=== PATIENT | female | born 1945 | race Caucasian/White ===

== ENCOUNTER 2017-12-10 00:39 | Emergency (ER) | payer OTHER ==
[~2017-12-10] VITALS: Ht 162.6 cm; Wt 77.1 kg
[~2017-12-10 00:39] MED LIST: ALPR1TAB2 PO
[2017-12-10 00:45] VITALS: BP_SYST 189
[2017-12-10] MEDS ORDERED: ACETAMINOPHEN 500 MG TABLET PO ONE (01:30)
[2017-12-10 01:57] VITALS: BP_SYST 147
== END 2017-12-10 01:57 | disposition home or self-care (01) ==
LOC: SED 00:39
DX: M25.552 Pain in left hip (principal); Z88.2 Allergy status to sulfonamides
CPT/HCPCS: 73502; 99284

== ENCOUNTER 2023-12-03 10:17 | Emergency (ER) | payer OTHER ==
[~2023-12-03] VITALS: Ht 160 cm; Wt 70.3 kg
[2023-12-03 10:17] VITALS: BP_SYST 152; PULSE 96; RESP 18; TEMP 97.4; O2SAT 96
[~2023-12-03 10:17] MED LIST changes: +ACET-1172 PO; +AMIT25TA10 PO; +IBUP-1970 PO; +METH500T PO; +NAPR-688 PO; +TRAM50TA92 PO; +VIS50 PO
[2023-12-03 11:34] LABS: BILIRUBIN,URINE NEGATIVE (NEGATIVE); BLOOD, URINE 2+ (NEGATIVE); CLARITY/URINE SL CLOUDY (CLEAR); COLOR,URINE YELLOW (YELLOW); GLUCOSE,URINE 3+ (NEGATIVE); KETONES,URINE 2+ (NEGATIVE); LEUKOCYTE ESTERASE ,URINE TRACE (NEGATIVE); NITRITE, URINE POSITIVE (NEGATIVE); PROTEIN URINE 3+ (NEGATIVE)
[2023-12-03 11:39] LABS: HEMATOCRIT 37.3 % (36-48); HEMOGLOBIN 12.5 g/dL (12.0-16.0); MEAN CORPUSCULAR HEMOGLOBIN 28 pg (27-31); MEAN CORPUSCULAR HGB CONC 34 % (32-36); MEAN CORPUSCULAR VOLUME 83 fL (79.0-98.0); PLATELET COUNT (AUTO) 363 K/uL (130-430); RED BLOOD CELL COUNT(AUTO) 4.49 MIL/uL (4.2-6.2); RED CELL DISTRIBUTION WIDTH 14.2 % (9.0-15.0); WHITE BLOOD COUNT (AUTO) 27.6 K/uL (4.8-10.8)
[2023-12-03 11:46] LABS: ALANINE AMINOTRANSFERASE 25 U/L (12-78); ANION GAP 12 (5-15); ASPARTATE AMINOTRANSFERASE 17 U/L (10-37); BILIRUBIN,DIRECT 0.2 mg/dL (0.0-0.3); CALCIUM 8.7 mg/dL (8.4-11.0); CARBON DIOXIDE 22 mmol/L (23-29); CHLORIDE 91 mmol/L (98-107); CREATININE 1.42 mg/dL (0.55-1.30); GLUCOSE 392 mg/dL (74-106); LIPASE 33 U/L (16-77); POTASSIUM 4.6 mmol/L (3.5-5.1); SODIUM SERUM 125 mmol/L (136-145); TOTAL BILIRUBIN 0.6 mg/dL (0.0-1.0); TOTAL PROTEIN, SERUM 7.8 g/dL (6.4-8.3); UREA NITROGEN, BLOOD 27 mg/dL (8-21)
[2023-12-03 12:28] LABS: BACTERIA,URINE FEW /HPF (None Seen)
[2023-12-03 12:29] LABS: HYALINE CASTS, URINE 0-1 /LPF (None Seen)
[2023-12-03 12:54] LABS: BAND % (MANUAL) 5 % (0-6); BASOPHILS % (MANUAL) 0 % (0-2); EOSINOPHILS % (MANUAL) 0 % (0-7); LYMPHOCYTES % (MANUAL) 4 % (20-46); MONOCYTES % (MANUAL) 6 % (0-11)
[2023-12-03 12:55] LABS: PLATELET ESTIMATE ADEQUATE (ADEQUATE)
[2023-12-03] MEDS ORDERED: cefTRIAXone 1 GM VIAL ONE (13:06)
[2023-12-03] MEDS: cefTRIAXone 1 GM in D5W 50 ML IV ONE (13:19)
[2023-12-03] MEDS: NACL 0.9% 1,000 ML IV ONE (13:19)
[2023-12-03] MEDS ORDERED: CEFU250T85 PO (13:30)
[2023-12-03 14:48] VITALS: BP_SYST 186; PULSE 90; RESP 16; TEMP 99.1; O2SAT 96
== END 2023-12-03 14:47 | disposition left against medical advice (07) ==
LOC: SED 10:17
DX: N39.0 Urinary tract infection, site not specified (principal); N28.89 Other specified disorders of kidney and ureter; D72.829 Elevated white blood cell count, unspecified; R73.9 Hyperglycemia, unspecified; Z88.2 Allergy status to sulfonamides
CPT/HCPCS: 99284; 74176; 96365; 85027; 80076; 80048; 81000; 81001; 83690; 85007; 87040; 36415; 81015; J0696; 87186

== ENCOUNTER 2023-12-16 04:21 | Inpatient (IN) | payer OTHER ==
[~2023-12-16] VITALS: Ht 162.6 cm; Wt 72.1 kg
[~2023-12-16 04:21] MED LIST changes: +CEFU250T85 PO
[2023-12-16 04:25] VITALS: BP_SYST 144; PULSE 93; RESP 16; TEMP 97.4; O2SAT 98
[2023-12-16] MEDS: NITROGLYCERIN 1 INCH (GM) OINT. TP ONE (05:19)
[2023-12-16 05:55] LABS: BASOPHILS # (AUTO) 0.1 K/uL (0.0-0.2); EOSINOPHILS # (AUTO) 0.1 K/uL (0.0-0.4); EOSINOPHILS % (AUTO) 0.9 % (0.0-4.0); HEMATOCRIT 35.7 % (36-48); HEMOGLOBIN 12.1 g/dL (12.0-16.0); LYMPHOCYTES # (AUTO) 1.6 K/uL (1.0-5.5); LYMPHOCYTES % (AUTO) 14.4 % (20.5-51.5); MEAN CORPUSCULAR HEMOGLOBIN 28 pg (27-31); MEAN CORPUSCULAR HGB CONC 34 % (32-36); MEAN CORPUSCULAR VOLUME 83 fL (79.0-98.0); MONOCYTES # (AUTO) 0.9 K/uL (0.0-1.0); MONOCYTES % (AUTO) 7.8 % (1.7-9.3); NEUTROPHILS # (AUTO) 8.2 K/uL (1.8-7.7); NEUTROPHILS % (AUTO) 75.9 % (40.0-70.0); PLATELET COUNT (AUTO) 444 K/uL (130-430); RED BLOOD CELL COUNT(AUTO) 4.32 MIL/uL (4.2-6.2); RED CELL DISTRIBUTION WIDTH 14.4 % (9.0-15.0); WHITE BLOOD COUNT (AUTO) 10.8 K/uL (4.8-10.8)
[2023-12-16] MEDS: hydrALAZINE HCL 20 MG/ML VIAL IVP ONE (05:55)
[2023-12-16] MEDS: MORPHINE 2 MG/ML INJ. SYRINGE IVP ONE (05:56)
[2023-12-16 06:26] LABS: ANION GAP 11 (5-15); CALCIUM 9.6 mg/dL (8.4-11.0); CARBON DIOXIDE 26 mmol/L (23-29); CHLORIDE 95 mmol/L (98-107); CREATININE 1.24 mg/dL (0.55-1.30); GLUCOSE 327 mg/dL (74-106); POTASSIUM 4.7 mmol/L (3.5-5.1); SODIUM SERUM 132 mmol/L (136-145); UREA NITROGEN, BLOOD 23 mg/dL (8-21)
[2023-12-16] MEDS ORDERED: IOHEXOL 350 mgI/mL, 150 ML INFUS..BTL IV ONE (06:43)
[2023-12-16] MEDS ORDERED: CELE-148 PO (07:11)
[2023-12-16] MEDS ORDERED: LEVO150T8 PO (07:11)
[2023-12-16] MEDS: LORazepam 2 MG/ML VIAL IVP ONE (07:27)
[2023-12-16 11:27] VITALS: O2SAT 95
[2023-12-16 11:32] VITALS: BP_SYST 128; PULSE 92; RESP 15; TEMP 98.6
[2023-12-16] MEDS: PANTOPRAZOLE SODIUM 40 MG/VIAL (PROTONIX) IVP ONE (12:34)
[2023-12-16] MEDS: LEVOTHYROXINE SODIUM 0.15 MG TABLET PO ONE (12:34)
[2023-12-16] MEDS: LOSARTAN POTASSIUM 25 MG TABLET PO ONE (12:35)
[2023-12-16 12:58] LABS: ALBUMIN 2.7 g/dL (3.4-4.8); BILIRUBIN,DIRECT 0.1 mg/dL (0.0-0.3); TOTAL BILIRUBIN 0.3 mg/dL (0.0-1.0); TOTAL PROTEIN, SERUM 6.9 g/dL (6.4-8.3)
[2023-12-16 15:02] VITALS: BP_SYST 124; PULSE 86; RESP 15; TEMP 97.6; O2SAT 95
[2023-12-16 20:00] VITALS: BP_SYST 148; PULSE 89; RESP 18; TEMP 97.6; O2SAT 95
[2023-12-16] MEDS: LOSARTAN POTASSIUM 25 MG TABLET PO SCH (20:27)
[2023-12-16] MEDS: PANTOPRAZOLE SODIUM 40 MG/VIAL (PROTONIX) IVP SCH (20:31)
[2023-12-16 22:43] VITALS: BP_SYST 148; PULSE 89; RESP 18; TEMP 97.6; O2SAT 95
[2023-12-17 00:10] VITALS: BP_SYST 142; PULSE 82; RESP 18; TEMP 98.4; O2SAT 94
[2023-12-17] MEDS: SUCRALFATE 1 GM/10 ML UDC PO SCH (03:36)
[2023-12-17 05:48] LABS: BASOPHILS # (AUTO) 0.1 K/uL (0.0-0.2); EOSINOPHILS # (AUTO) 0.1 K/uL (0.0-0.4); HEMATOCRIT 33.8 % (36-48); HEMOGLOBIN 11.4 g/dL (12.0-16.0); LYMPHOCYTES # (AUTO) 1.7 K/uL (1.0-5.5); MEAN CORPUSCULAR HEMOGLOBIN 28 pg (27-31); MEAN CORPUSCULAR HGB CONC 34 % (32-36); MEAN CORPUSCULAR VOLUME 83 fL (79.0-98.0); MONOCYTES # (AUTO) 1.4 K/uL (0.0-1.0); MONOCYTES % (AUTO) 10.5 % (1.7-9.3); NEUTROPHILS # (AUTO) 9.9 K/uL (1.8-7.7); NEUTROPHILS % (AUTO) 74.5 % (40.0-70.0); PLATELET COUNT (AUTO) 413 K/uL (130-430); RED CELL DISTRIBUTION WIDTH 14.7 % (9.0-15.0); WHITE BLOOD COUNT (AUTO) 13.3 K/uL (4.8-10.8)
[2023-12-17 05:56] LABS: ANION GAP 12 (5-15); CALCIUM 9.2 mg/dL (8.4-11.0); CARBON DIOXIDE 25 mmol/L (23-29); CHLORIDE 98 mmol/L (98-107); CREATININE 1.34 mg/dL (0.55-1.30); GLUCOSE 275 mg/dL (74-106); POTASSIUM 4.2 mmol/L (3.5-5.1); SODIUM SERUM 135 mmol/L (136-145); UREA NITROGEN, BLOOD 20 mg/dL (8-21)
[2023-12-17] MEDS: LEVOTHYROXINE SODIUM 0.15 MG TABLET PO SCH (06:04)
[2023-12-17] MEDS: cloNIDine HCL 0.1 MG TABLET PO PRN (06:12)
[2023-12-17] MEDS: MORPHINE 2 MG/ML INJ. SYRINGE ONE (07:43)
[2023-12-17] MEDS: MORPHINE 2 MG/ML INJ. SYRINGE IVP ONE (07:43)
[2023-12-17] MEDS ORDERED: NALOXONE HCL 0.4 MG/ML AMP (NARCAN) IVP PRN (07:45)
[2023-12-17 08:00] VITALS: O2SAT 96
[2023-12-17 08:23] VITALS: BP_SYST 127; PULSE 92; RESP 16; TEMP 98.2; O2SAT 96
[2023-12-17] MEDS: hydrALAZINE HCL 20 MG/ML VIAL IVP ONE (08:55)
[2023-12-17] MEDS: cloNIDine HCL 0.1 MG/24 HR PATCH.TDWK TD ONE (09:08)
[2023-12-17 12:28] VITALS: BP_SYST 139; PULSE 85; RESP 17; TEMP 98.3; O2SAT 98
[2023-12-17] MEDS: NIFEdipine 30 MG TAB.ER.24 PO SCH (12:34)
[2023-12-17] MEDS: metroNIDAZOLE 500 mg/NS 100 ML IV SCH (14:23)
[2023-12-17 16:44] VITALS: BP_SYST 129; PULSE 89; RESP 16; TEMP 98.1; O2SAT 97
[2023-12-17] MEDS: traMADol HCL HCL 50 MG TABLET (ULTRAM) PO PRN (17:20)
[2023-12-17 20:00] VITALS: BP_SYST 146; PULSE 86; RESP 18; TEMP 98.3; O2SAT 97
[2023-12-17] MEDS: hydrALAZINE HCL 25 MG TABLET PO PRN (20:11)
[2023-12-18] VITALS (7 sets, daily range): BP systolic 115–134; PULSE 73–91; RESP 15–18; TEMP 97.4–98.7; O2SAT 94–97
[2023-12-18] MEDS: MIDAZOLAM HCL 5 MG/5 ML VIAL ONE (06:13)
[2023-12-18] MEDS: fentaNYL CITRATE/PF 100 MCG/2 ML AMP ONE (06:22)
[2023-12-18] MEDS: MEPERIDINE 100 MG INJ. 100 MG/ML VIAL ONE (06:23)
[2023-12-18 06:30] LABS: BASOPHILS # (AUTO) 0.1 K/uL (0.0-0.2); BASOPHILS % (AUTO) 0.5 % (0.0-2.0); EOSINOPHILS % (AUTO) 0.1 % (0.0-4.0); HEMATOCRIT 32.7 % (36-48); HEMOGLOBIN 10.9 g/dL (12.0-16.0); LYMPHOCYTES # (AUTO) 1.8 K/uL (1.0-5.5); LYMPHOCYTES % (AUTO) 9.4 % (20.5-51.5); MEAN CORPUSCULAR HEMOGLOBIN 27 pg (27-31); MEAN CORPUSCULAR HGB CONC 33 % (32-36); MEAN CORPUSCULAR VOLUME 82 fL (79.0-98.0); MONOCYTES # (AUTO) 2.1 K/uL (0.0-1.0); NEUTROPHILS # (AUTO) 15.1 K/uL (1.8-7.7); PLATELET COUNT (AUTO) 380 K/uL (130-430); RED BLOOD CELL COUNT(AUTO) 3.97 MIL/uL (4.2-6.2); RED CELL DISTRIBUTION WIDTH 14.7 % (9.0-15.0); WHITE BLOOD COUNT (AUTO) 19.1 K/uL (4.8-10.8)
[2023-12-18 06:53] LABS: ANION GAP 10 (5-15); CALCIUM 8.7 mg/dL (8.4-11.0); CARBON DIOXIDE 24 mmol/L (23-29); CHLORIDE 92 mmol/L (98-107); CREATININE 1.35 mg/dL (0.55-1.30); GLUCOSE 327 mg/dL (74-106); POTASSIUM 4.5 mmol/L (3.5-5.1); SODIUM SERUM 126 mmol/L (136-145); UREA NITROGEN, BLOOD 19 mg/dL (8-21)
[2023-12-18] MEDS: SIMETHICONE 40 MG/0.6 ML ML ONE (07:19)
[2023-12-18] MEDS ORDERED: METOPROLOL SUCCINATE 25 MG TAB.SR.24H (TOPROL XL) PO SCH (09:00)
[2023-12-18] MEDS: NIFEdipine 30 MG TAB.ER.24 PO SCH (09:28)
[2023-12-18] MEDS ORDERED: METF-379 PO (11:50)
[2023-12-18] MEDS ORDERED: PIOG30TA70 PO (11:51)
[2023-12-18 12:17] LABS: BILIRUBIN,URINE NEGATIVE (NEGATIVE); CLARITY/URINE CLOUDY (CLEAR); COLOR,URINE YELLOW (YELLOW); GLUCOSE,URINE 3+ (NEGATIVE); KETONES,URINE TRACE (NEGATIVE); LEUKOCYTE ESTERASE ,URINE 2+ (NEGATIVE); NITRITE, URINE NEGATIVE (NEGATIVE); PROTEIN URINE NEGATIVE (NEGATIVE); UROBILINOGEN,URINE 0.2 (0.2-1.0)
[2023-12-18 12:18] LABS: BLOOD, URINE TRACE (NEGATIVE)
[2023-12-18 12:26] LABS: BACTERIA,URINE MODERATE /HPF (None Seen); OTHER CASTS, URINE WBC CASTS 2+ /LPF (None Seen); WBC,URINE >100 /HPF (0-3)
[2023-12-18 12:27] LABS: MUCUS,URINE 2+ /LPF (None Seen)
[2023-12-18] MEDS: NACL 0.9% 1,000 ML IV SCH (13:14)
[2023-12-18] MEDS: CYCLOBENZAPRINE HCL 10 MG TABLET (FLEXERIL) PO ONE (13:15)
[2023-12-18] MEDS: CYCLOBENZAPRINE HCL 10 MG TABLET (FLEXERIL) PO SCH (15:49)
[2023-12-19 00:20] VITALS: BP_SYST 139; PULSE 85; RESP 18; TEMP 98.9; O2SAT 95
[2023-12-19 06:28] LABS: BASOPHILS # (AUTO) 0.1 K/uL (0.0-0.2); BASOPHILS % (AUTO) 0.5 % (0.0-2.0); EOSINOPHILS # (AUTO) 0.1 K/uL (0.0-0.4); EOSINOPHILS % (AUTO) 0.3 % (0.0-4.0); HEMATOCRIT 32.2 % (36-48); HEMOGLOBIN 10.9 g/dL (12.0-16.0); LYMPHOCYTES # (AUTO) 1.6 K/uL (1.0-5.5); MEAN CORPUSCULAR HEMOGLOBIN 28 pg (27-31); MEAN CORPUSCULAR HGB CONC 34 % (32-36); MEAN CORPUSCULAR VOLUME 83 fL (79.0-98.0); MONOCYTES # (AUTO) 1.9 K/uL (0.0-1.0); MONOCYTES % (AUTO) 10.3 % (1.7-9.3); NEUTROPHILS # (AUTO) 14.4 K/uL (1.8-7.7); NEUTROPHILS % (AUTO) 79.9 % (40.0-70.0); PLATELET COUNT (AUTO) 338 K/uL (130-430); RED BLOOD CELL COUNT(AUTO) 3.87 MIL/uL (4.2-6.2); RED CELL DISTRIBUTION WIDTH 14.4 % (9.0-15.0); WHITE BLOOD COUNT (AUTO) 18.1 K/uL (4.8-10.8)
[2023-12-19 07:07] LABS: ANION GAP 12 (5-15); CALCIUM 8.5 mg/dL (8.4-11.0); CARBON DIOXIDE 23 mmol/L (23-29); CHLORIDE 94 mmol/L (98-107); CREATININE 1.23 mg/dL (0.55-1.30); GLUCOSE 303 mg/dL (74-106); POTASSIUM 3.8 mmol/L (3.5-5.1); SODIUM SERUM 129 mmol/L (136-145); THYROID STIMULATING HORMONE 3.06 uIu/mL (0.34-4.82); UREA NITROGEN, BLOOD 20 mg/dL (8-21)
[2023-12-19 08:00] VITALS: BP_SYST 123; PULSE 84; RESP 20; TEMP 98.3; O2SAT 94
[2023-12-19 11:13] VITALS: BP_SYST 130; PULSE 78; RESP 16; TEMP 97; O2SAT 92
[2023-12-19 15:06] VITALS: BP_SYST 123; PULSE 77; RESP 16; TEMP 98.3; O2SAT 97
[2023-12-19 20:01] VITALS: BP_SYST 134; PULSE 83; RESP 19; TEMP 97.9; O2SAT 95
[2023-12-20 01:00] VITALS: BP_SYST 142; PULSE 91; RESP 17; TEMP 98.4; O2SAT 97
[2023-12-20 07:03] LABS: BASOPHILS # (AUTO) 0.2 K/uL (0.0-0.2); BASOPHILS % (AUTO) 1.2 % (0.0-2.0); EOSINOPHILS # (AUTO) 0.2 K/uL (0.0-0.4); EOSINOPHILS % (AUTO) 1.2 % (0.0-4.0); HEMATOCRIT 29.8 % (36-48); HEMOGLOBIN 10.1 g/dL (12.0-16.0); LYMPHOCYTES # (AUTO) 1.7 K/uL (1.0-5.5); LYMPHOCYTES % (AUTO) 13.1 % (20.5-51.5); MEAN CORPUSCULAR HEMOGLOBIN 28 pg (27-31); MEAN CORPUSCULAR HGB CONC 34 % (32-36); MEAN CORPUSCULAR VOLUME 82 fL (79.0-98.0); MONOCYTES # (AUTO) 1.5 K/uL (0.0-1.0); MONOCYTES % (AUTO) 11.6 % (1.7-9.3); NEUTROPHILS # (AUTO) 9.7 K/uL (1.8-7.7); NEUTROPHILS % (AUTO) 72.9 % (40.0-70.0); PLATELET COUNT (AUTO) 292 K/uL (130-430); RED BLOOD CELL COUNT(AUTO) 3.62 MIL/uL (4.2-6.2); RED CELL DISTRIBUTION WIDTH 14.7 % (9.0-15.0); WHITE BLOOD COUNT (AUTO) 13.3 K/uL (4.8-10.8)
[2023-12-20 07:14] LABS: ERYTHROCYTE SEDIMENTATION RATE 50 MM/HR (0-20)
[2023-12-20 07:20] LABS: ANION GAP 9 (5-15); CALCIUM 7.9 mg/dL (8.4-11.0); CARBON DIOXIDE 25 mmol/L (23-29); CHLORIDE 102 mmol/L (98-107); CREATININE 1.14 mg/dL (0.55-1.30); GLUCOSE 327 mg/dL (74-106); POTASSIUM 4.2 mmol/L (3.5-5.1); SODIUM SERUM 136 mmol/L (136-145); UREA NITROGEN, BLOOD 16 mg/dL (8-21)
[2023-12-20 08:00] VITALS: BP_SYST 140; PULSE 85; RESP 16; TEMP 97.5; O2SAT 96
[2023-12-20 11:02] VITALS: BP_SYST 150; PULSE 86; RESP 15; TEMP 97.3; O2SAT 100
[2023-12-20 15:01] VITALS: BP_SYST 140; PULSE 88; RESP 16; TEMP 97; O2SAT 97
[2023-12-20] MEDS ORDERED: METR-154 PO (16:47)
[2023-12-20] MEDS ORDERED: LEVO-62 PO (16:47)
[2023-12-20 17:54] VITALS: BP_SYST 140; PULSE 86; RESP 16; TEMP 97; O2SAT 97
[2023-12-20] MEDS ORDERED: metroNIDAZOLE 500 MG TABLET PO SCH (21:00)
[2023-12-21 08:06] LABS: CORTISOL (SERUM) 22.7 ug/dL (6.2-19.4)
[2023-12-21] MEDS ORDERED: levoFLOXacin 500 MG TABLET PO SCH (10:00)
[2023-12-21] MEDS ORDERED: LOSA-412 PO (19:29)
[2023-12-21] MEDS ORDERED: NIFE-129 PO (19:29)
== END 2023-12-20 18:06 | disposition home or self-care (01) | DRG 392 ==
LOC: SED 04:21 → STU 06:23 → SMU 12-18 14:38
PROVIDERS: ADMIT Family Medicine; ATTEND Family Medicine
PROC: 0DB68ZX Excision of Stomach, Via Natural or Artificial Opening Endoscopic, Diagnostic (ICD-10-PCS; principal; 2023-12-18 07:30)
DX: K52.9 Noninfective gastroenteritis and colitis, unspecified (principal); E87.1 Hypo-osmolality and hyponatremia; E44.1 Mild protein-calorie malnutrition; R65.10 Systemic inflammatory response syndrome (SIRS) of non-infectious origin without acute organ dysfunction; I16.0 Hypertensive urgency; K29.70 Gastritis, unspecified, without bleeding; D64.9 Anemia, unspecified; E03.9 Hypothyroidism, unspecified; E11.65 Type 2 diabetes mellitus with hyperglycemia; I10 Essential (primary) hypertension; K21.00 Gastro-esophageal reflux disease with esophagitis, without bleeding; R07.89 Other chest pain; Z90.710 Acquired absence of both cervix and uterus; Z79.899 Other long term (current) drug therapy; Z88.2 Allergy status to sulfonamides; Z68.27 Body mass index [BMI] 27.0-27.9, adult
CPT/HCPCS: 36415; 43239; 70450-TC; 71275; 72110; 74175; 80048; 80076; 81000; 81001; 81015; 82533; 82948; 83690; 83930; 84302; 84443; 84484; 84550; 85025; 85651; 87040; 87081; 87086; 88305; 88312; 88313; 93005; 96374; 96375; 97116-GP; 97530-GP; 99285; C9113; G0378; J0360; J1956; J2060; J2175; J2250; J2270; J3010; J3490; Q9967

== ENCOUNTER 2024-02-21 20:23 | Inpatient (IN) | payer OTHER ==
[~2024-02-21] VITALS: Ht 157.5 cm; Wt 86.2 kg
[~2024-02-21 20:23] MED LIST changes: +CELE-148 PO; +LEVO-62 PO; +LEVO150T8 PO; +LOSA-412 PO; +METF-379 PO; +METR-154 PO; +NIFE-129 PO; +PIOG30TA70 PO
[2024-02-21 20:32] VITALS: BP_SYST 131; PULSE 108; RESP 13; TEMP 100.6; O2SAT 96
[2024-02-21 21:17] LABS: ALANINE AMINOTRANSFERASE 65 U/L (12-78); ALBUMIN 2.6 g/dL (3.4-4.8); ANION GAP 11 (5-15); ASPARTATE AMINOTRANSFERASE 37 U/L (10-37); BILIRUBIN,DIRECT 0.2 mg/dL (0.0-0.3); CALCIUM 9.2 mg/dL (8.4-11.0); CARBON DIOXIDE 21 mmol/L (23-29); CHLORIDE 88 mmol/L (98-107); CREATININE 1.57 mg/dL (0.55-1.30); GLUCOSE 389 mg/dL (74-106); POTASSIUM 4.5 mmol/L (3.5-5.1); SODIUM SERUM 120 mmol/L (136-145); TOTAL BILIRUBIN 0.6 mg/dL (0.0-1.0); TOTAL PROTEIN, SERUM 7.6 g/dL (6.4-8.3); UREA NITROGEN, BLOOD 42 mg/dL (8-21)
[2024-02-21] MEDS: NACL 0.9% 1,000 ML IV ONE (21:19)
[2024-02-21 21:20] LABS: HEMATOCRIT 31.6 % (36-48); HEMOGLOBIN 10.8 g/dL (12.0-16.0); MEAN CORPUSCULAR HEMOGLOBIN 27 pg (27-31); MEAN CORPUSCULAR HGB CONC 34 % (32-36); MEAN CORPUSCULAR VOLUME 80 fL (79.0-98.0); PLATELET COUNT (AUTO) 440 K/uL (130-430); RED BLOOD CELL COUNT(AUTO) 3.93 MIL/uL (4.2-6.2); RED CELL DISTRIBUTION WIDTH 16.1 % (9.0-15.0); WHITE BLOOD COUNT (AUTO) 29.6 K/uL (4.8-10.8)
[2024-02-21] MEDS: metroNIDAZOLE 500 mg/NS 100 ML IV ONE (21:45)
[2024-02-21 21:51] LABS: BAND % (MANUAL) 3 % (0-6); BASOPHILS % (MANUAL) 0 % (0-2); EOSINOPHILS % (MANUAL) 0 % (0-7); LYMPHOCYTES % (MANUAL) 1 % (20-46); MONOCYTES % (MANUAL) 10 % (0-11)
[2024-02-21 21:52] LABS: PLATELET ESTIMATE INCREASED (ADEQUATE)
[2024-02-21 22:17] LABS: BILIRUBIN,URINE NEGATIVE (NEGATIVE); BLOOD, URINE 3+ (NEGATIVE); COLOR,URINE YELLOW (YELLOW); GLUCOSE,URINE 2+ (NEGATIVE); KETONES,URINE TRACE (NEGATIVE); LEUKOCYTE ESTERASE ,URINE 2+ (NEGATIVE); NITRITE, URINE NEGATIVE (NEGATIVE); PH,URINE 5.5 (5.0-8.0); PROTEIN URINE 2+ (NEGATIVE); UROBILINOGEN,URINE 0.2 (0.2-1.0)
[2024-02-21 22:18] LABS: CLARITY/URINE HAZY (CLEAR)
[2024-02-21 22:31] LABS: BACTERIA,URINE MANY /HPF (None Seen); WBC,URINE 20-50 /HPF (0-3)
[2024-02-21] MEDS: ONDANSETRON HCL 4 MG/2 ML VIAL IVP ONE (22:34)
[2024-02-21] MEDS: KETOROLAC TROMETHAMINE 30 MG VIAL IVP ONE (22:35)
[2024-02-21] MEDS: MORPHINE 2 MG/ML INJ. SYRINGE IVP ONE (22:37)
[2024-02-21] MEDS: cefTRIAXone 1 GM IVPB PREMIX 50 ML IV ONE (22:45)
[2024-02-22] VITALS (8 sets, daily range): BP systolic 118–161; PULSE 100–109; RESP 16–20; TEMP 97.6–100.2; O2SAT 93–98
[2024-02-22] MEDS ORDERED: LOSA-412 PO (00:10)
[2024-02-22] MEDS ORDERED: GLIP10TA11 PO (00:10)
[2024-02-22] MEDS ORDERED: PANT40TA45 PO (00:10)
[2024-02-22] MEDS ORDERED: METF-381 PO (00:10)
[2024-02-22] MEDS ORDERED: PIOG45TA63 PO (00:10)
[2024-02-22] MEDS ORDERED: INSULIN REGULAR, HUMAN 10 UNITS/0.1 ML, 3 ML VIAL ONE (00:31)
[2024-02-22] MEDS: INSULIN REGULAR, HUMAN 10 UNITS/0.1 ML, 3 ML VIAL IVP ONE (00:36)
[2024-02-22] MEDS: NS 250 ML IV ONE (01:23)
[2024-02-22] MEDS: D5/0.45 NS 1,000 ML IV SCH (05:56)
[2024-02-22] MEDS ORDERED: NALOXONE HCL 0.4 MG/ML AMP (NARCAN) IVP PRN (10:00)
[2024-02-22] MEDS ORDERED: ONDANSETRON HCL 4 MG/2 ML VIAL IVP PRN (10:00)
[2024-02-22] MEDS ORDERED: ALBUTEROL SULFATE 0.083% 2.5 MG/3 ML VIAL.NEB INH PRN (10:00)
[2024-02-22] MEDS ORDERED: HYDROcodone/ACETAMIN 5-325 MG TAB (NORCO/ VICODIN) PO PRN (10:00)
[2024-02-22] MEDS ORDERED: MORPHINE 2 MG/ML INJ. SYRINGE IVP PRN (10:00)
[2024-02-22] MEDS ORDERED: GLUCOSE (DEXTROSE) ORAL GEL -Adults PO PRN (10:15)
[2024-02-22] MEDS ORDERED: DEXTROSE 50% JECT 50 ML DISP.SYRIN IVP PRN (10:15)
[2024-02-22 10:43] LABS: HEMATOCRIT 30.7 % (36-48); HEMOGLOBIN 10.1 g/dL (12.0-16.0); MEAN CORPUSCULAR HEMOGLOBIN 26 pg (27-31); MEAN CORPUSCULAR HGB CONC 33 % (32-36); MEAN CORPUSCULAR VOLUME 81 fL (79.0-98.0); PLATELET COUNT (AUTO) 441 K/uL (130-430); RED BLOOD CELL COUNT(AUTO) 3.81 MIL/uL (4.2-6.2); RED CELL DISTRIBUTION WIDTH 15.9 % (9.0-15.0)
[2024-02-22] MEDS: NACL 0.9% 1,000 ML IV SCH (10:53)
[2024-02-22] MEDS: HYDROcodone/ACETAMIN 10-325 MG TAB PO PRN (10:54)
[2024-02-22] MEDS: LOSARTAN POTASSIUM 25 MG TABLET PO ONE (10:55)
[2024-02-22] MEDS: LEVOTHYROXINE SODIUM 0.15 MG TABLET PO ONE (11:08)
[2024-02-22 11:11] LABS: WHITE BLOOD COUNT (AUTO) 32.2 K/uL (4.8-10.8)
[2024-02-22] MEDS: INSULIN REGULAR, HUMAN 100 UNITS/ML, 3 ML VIAL (humuLIN R) SUBCUT PRN (11:11)
[2024-02-22] MEDS ORDERED: cefTRIAXone 1 GM in D5W 50 ML IV SCH (11:15)
[2024-02-22 12:10] LABS: ALANINE AMINOTRANSFERASE 59 U/L (12-78); ALBUMIN 2.3 g/dL (3.4-4.8); ANION GAP 12 (5-15); ASPARTATE AMINOTRANSFERASE 36 U/L (10-37); CALCIUM 8.7 mg/dL (8.4-11.0); CARBON DIOXIDE 22 mmol/L (23-29); CHLORIDE 92 mmol/L (98-107); CREATININE 1.47 mg/dL (0.55-1.30); GLUCOSE 234 mg/dL (74-106); POTASSIUM 4.3 mmol/L (3.5-5.1); SODIUM SERUM 126 mmol/L (136-145); TOTAL BILIRUBIN 0.4 mg/dL (0.0-1.0); TOTAL PROTEIN, SERUM 6.6 g/dL (6.4-8.3); UREA NITROGEN, BLOOD 38 mg/dL (8-21)
[2024-02-22] MEDS: PIPERACILLIN/TAZO 3.375 GM in NS 50 ML IV ONE (12:25)
[2024-02-22 12:30] LABS: BAND % (MANUAL) 4 % (0-6); BASOPHILS % (MANUAL) 0 % (0-2); EOSINOPHILS % (MANUAL) 0 % (0-7); LYMPHOCYTES % (MANUAL) 2 % (20-46); MONOCYTES % (MANUAL) 1 % (0-11); PLATELET ESTIMATE INCREASED (ADEQUATE)
[2024-02-22 12:31] LABS: ANISOCYTOSIS 1+
[2024-02-22 12:54] LABS: COVID19 ANTIGEN SOFIA FIA NEGATIVE (NEGATIVE)
[2024-02-22 13:11] LABS: INFLUENZA TYPE A Negative (NEGATIVE); INFLUENZA TYPE B NEGATIVE (NEGATIVE)
[2024-02-22] MEDS: PIPERACILLIN/TAZO 3.375 GM in NS 50 ML IV SCH (14:27)
[2024-02-22] MEDS: PANTOPRAZOLE SODIUM 40 MG/VIAL (PROTONIX) IVP ONE (17:21)
[2024-02-22] MEDS: ACETAMINOPHEN 325 MG TABLET PO PRN (20:25)
[2024-02-22] MEDS: AMITRIPTYLINE HCL 25 MG TABLET (ELAVIL) PO SCH (20:25)
[2024-02-22] MEDS: HYDROCHLOROTHIAZIDE 12.5 MG CAPSULE (HCTZ) PO SCH (20:28)
[2024-02-22] MEDS: LOSARTAN POTASSIUM 50 MG TABLET (COZAAR) PO SCH (20:28)
[2024-02-22] MEDS ORDERED: LOSARTAN POTASSIUM 25 MG TABLET PO SCH (21:00)
[2024-02-23] VITALS (8 sets, daily range): BP systolic 101–144; PULSE 67–82; RESP 16–18; TEMP 97.5–100.8; O2SAT 94–96
[2024-02-23 04:45] LABS: BASOPHILS # (AUTO) 0.1 K/uL (0.0-0.2); BASOPHILS % (AUTO) 0.2 % (0.0-2.0); EOSINOPHILS # (AUTO) 0.1 K/uL (0.0-0.4); EOSINOPHILS % (AUTO) 0.3 % (0.0-4.0); HEMATOCRIT 30.2 % (36-48); HEMOGLOBIN 9.8 g/dL (12.0-16.0); LYMPHOCYTES # (AUTO) 1.4 K/uL (1.0-5.5); LYMPHOCYTES % (AUTO) 4.5 % (20.5-51.5); MEAN CORPUSCULAR HEMOGLOBIN 26 pg (27-31); MEAN CORPUSCULAR HGB CONC 32 % (32-36); MEAN CORPUSCULAR VOLUME 81 fL (79.0-98.0); MONOCYTES # (AUTO) 2.1 K/uL (0.0-1.0); NEUTROPHILS # (AUTO) 26.7 K/uL (1.8-7.7); PLATELET COUNT (AUTO) 418 K/uL (130-430); RED BLOOD CELL COUNT(AUTO) 3.73 MIL/uL (4.2-6.2)
[2024-02-23 04:53] LABS: WHITE BLOOD COUNT (AUTO) 30.4 K/uL (4.8-10.8)
[2024-02-23 04:54] LABS: ALANINE AMINOTRANSFERASE 50 U/L (12-78); ANION GAP 8 (5-15); ASPARTATE AMINOTRANSFERASE 26 U/L (10-37); CALCIUM 8.3 mg/dL (8.4-11.0); CARBON DIOXIDE 24 mmol/L (23-29); CHLORIDE 96 mmol/L (98-107); CREATININE 1.74 mg/dL (0.55-1.30); GLUCOSE 340 mg/dL (74-106); POTASSIUM 4.3 mmol/L (3.5-5.1); SODIUM SERUM 128 mmol/L (136-145); TOTAL BILIRUBIN 0.3 mg/dL (0.0-1.0); UREA NITROGEN, BLOOD 41 mg/dL (8-21)
[2024-02-23] MEDS: LEVOTHYROXINE SODIUM 0.15 MG TABLET PO SCH (09:22)
[2024-02-23] MEDS: PANTOPRAZOLE SODIUM 40 MG/VIAL (PROTONIX) IVP SCH (09:40)
[2024-02-23] MEDS: LIDOCAINE PATCH 5% 1 EA TP PRN (13:47)
[2024-02-23] MEDS: NACL 0.9% 1,000 ML IV SCH (15:30)
[2024-02-23] MEDS: INSULIN GLARGINE 100 UNITS/ML, 10 ML VIAL SUBCUT SCH (21:56)
[2024-02-24] VITALS: BP_SYST 134; PULSE 81; RESP 16; O2SAT 95
[2024-02-24 04:57] LABS: BASOPHILS # (AUTO) 0.2 K/uL (0.0-0.2); BASOPHILS % (AUTO) 0.6 % (0.0-2.0); EOSINOPHILS # (AUTO) 0.2 K/uL (0.0-0.4); EOSINOPHILS % (AUTO) 0.7 % (0.0-4.0); HEMATOCRIT 27.2 % (36-48); HEMOGLOBIN 8.9 g/dL (12.0-16.0); LYMPHOCYTES # (AUTO) 1.4 K/uL (1.0-5.5); LYMPHOCYTES % (AUTO) 5.2 % (20.5-51.5); MEAN CORPUSCULAR HEMOGLOBIN 27 pg (27-31); MEAN CORPUSCULAR HGB CONC 33 % (32-36); MEAN CORPUSCULAR VOLUME 81 fL (79.0-98.0); MONOCYTES % (AUTO) 7.6 % (1.7-9.3); NEUTROPHILS # (AUTO) 22.6 K/uL (1.8-7.7); NEUTROPHILS % (AUTO) 85.9 % (40.0-70.0); PLATELET COUNT (AUTO) 420 K/uL (130-430); RED BLOOD CELL COUNT(AUTO) 3.35 MIL/uL (4.2-6.2); RED CELL DISTRIBUTION WIDTH 16.1 % (9.0-15.0); WHITE BLOOD COUNT (AUTO) 26.3 K/uL (4.8-10.8)
[2024-02-24 05:29] LABS: ALANINE AMINOTRANSFERASE 42 U/L (12-78); ALBUMIN 1.9 g/dL (3.4-4.8); ANION GAP 8 (5-15); ASPARTATE AMINOTRANSFERASE 28 U/L (10-37); CALCIUM 8.2 mg/dL (8.4-11.0); CARBON DIOXIDE 23 mmol/L (23-29); CHLORIDE 99 mmol/L (98-107); CREATININE 1.63 mg/dL (0.55-1.30); GLUCOSE 244 mg/dL (74-106); POTASSIUM 4.2 mmol/L (3.5-5.1); SODIUM SERUM 130 mmol/L (136-145); TOTAL BILIRUBIN 0.4 mg/dL (0.0-1.0); TOTAL PROTEIN, SERUM 5.9 g/dL (6.4-8.3); UREA NITROGEN, BLOOD 36 mg/dL (8-21)
[2024-02-24 08:00] VITALS: O2SAT 94
[2024-02-24 12:18] VITALS: BP_SYST 138; PULSE 76; RESP 17; TEMP 98.4; O2SAT 98
[2024-02-24 16:00] VITALS: BP_SYST 136; PULSE 78; RESP 16; TEMP 98.7; O2SAT 96
[2024-02-24 20:38] VITALS: PULSE 87; RESP 20; TEMP 98.8; O2SAT 97
[2024-02-24 23:19] VITALS: O2SAT 97
[2024-02-25 00:20] VITALS: BP_SYST 168; PULSE 98; RESP 16; TEMP 99.9; O2SAT 94
[2024-02-25 05:21] LABS: ALANINE AMINOTRANSFERASE 43 U/L (12-78); ALBUMIN 2.1 g/dL (3.4-4.8); ANION GAP 7 (5-15); ASPARTATE AMINOTRANSFERASE 26 U/L (10-37); CALCIUM 8.5 mg/dL (8.4-11.0); CARBON DIOXIDE 25 mmol/L (23-29); CHLORIDE 100 mmol/L (98-107); CREATININE 1.29 mg/dL (0.55-1.30); GLUCOSE 262 mg/dL (74-106); POTASSIUM 4.1 mmol/L (3.5-5.1); SODIUM SERUM 132 mmol/L (136-145); TOTAL BILIRUBIN 0.3 mg/dL (0.0-1.0); TOTAL PROTEIN, SERUM 6.4 g/dL (6.4-8.3); UREA NITROGEN, BLOOD 22 mg/dL (8-21)
[2024-02-25 05:31] LABS: BASOPHILS # (AUTO) 0.1 K/uL (0.0-0.2); BASOPHILS % (AUTO) 0.6 % (0.0-2.0); EOSINOPHILS # (AUTO) 0.2 K/uL (0.0-0.4); EOSINOPHILS % (AUTO) 0.9 % (0.0-4.0); HEMATOCRIT 27.9 % (36-48); HEMOGLOBIN 9.3 g/dL (12.0-16.0); LYMPHOCYTES # (AUTO) 2.1 K/uL (1.0-5.5); MEAN CORPUSCULAR HEMOGLOBIN 27 pg (27-31); MEAN CORPUSCULAR HGB CONC 33 % (32-36); MEAN CORPUSCULAR VOLUME 81 fL (79.0-98.0); MONOCYTES # (AUTO) 2.3 K/uL (0.0-1.0); MONOCYTES % (AUTO) 8.8 % (1.7-9.3); NEUTROPHILS % (AUTO) 81.7 % (40.0-70.0); PLATELET COUNT (AUTO) 493 K/uL (130-430); RED BLOOD CELL COUNT(AUTO) 3.45 MIL/uL (4.2-6.2); RED CELL DISTRIBUTION WIDTH 16.5 % (9.0-15.0); WHITE BLOOD COUNT (AUTO) 25.7 K/uL (4.8-10.8)
[2024-02-25 08:00] VITALS: O2SAT 96
[2024-02-25 09:25] VITALS: PULSE 85; O2SAT 96
[2024-02-25 12:06] VITALS: BP_SYST 122; PULSE 75; RESP 16; TEMP 98.4; O2SAT 96
[2024-02-25] MEDS: DULoxetine HCL 30 MG CAPSULE.DR (CYMBALTA) PO ONE (15:42)
[2024-02-25 16:05] VITALS: BP_SYST 147; PULSE 77; RESP 16; TEMP 98.7; O2SAT 97
[2024-02-25 16:27] LABS: CHLORIDE,URINE RANDOM 25 mmol/L (55-125)
[2024-02-25 20:00] VITALS: BP_SYST 161; PULSE 85; RESP 18; TEMP 97.5; O2SAT 97
[2024-02-25] MEDS: INSULIN GLARGINE 100 UNITS/ML, 10 ML VIAL SUBCUT SCH (21:01)
[2024-02-26] VITALS: BP_SYST 133; PULSE 86; RESP 16; TEMP 98.3; O2SAT 95
[2024-02-26 05:20] LABS: BASOPHILS # (AUTO) 0.1 K/uL (0.0-0.2); BASOPHILS % (AUTO) 0.7 % (0.0-2.0); EOSINOPHILS # (AUTO) 0.3 K/uL (0.0-0.4); EOSINOPHILS % (AUTO) 1.8 % (0.0-4.0); HEMATOCRIT 28.9 % (36-48); HEMOGLOBIN 9.7 g/dL (12.0-16.0); LYMPHOCYTES # (AUTO) 2.2 K/uL (1.0-5.5); MEAN CORPUSCULAR HEMOGLOBIN 27 pg (27-31); MEAN CORPUSCULAR HGB CONC 33 % (32-36); MEAN CORPUSCULAR VOLUME 81 fL (79.0-98.0); MONOCYTES # (AUTO) 1.6 K/uL (0.0-1.0); MONOCYTES % (AUTO) 9.7 % (1.7-9.3); NEUTROPHILS # (AUTO) 12.4 K/uL (1.8-7.7); NEUTROPHILS % (AUTO) 74.8 % (40.0-70.0); PLATELET COUNT (AUTO) 563 K/uL (130-430); RED BLOOD CELL COUNT(AUTO) 3.59 MIL/uL (4.2-6.2); RED CELL DISTRIBUTION WIDTH 16.4 % (9.0-15.0); WHITE BLOOD COUNT (AUTO) 16.5 K/uL (4.8-10.8)
[2024-02-26 05:36] LABS: ALANINE AMINOTRANSFERASE 42 U/L (12-78); ALBUMIN 2.1 g/dL (3.4-4.8); ANION GAP 8 (5-15); ASPARTATE AMINOTRANSFERASE 27 U/L (10-37); CARBON DIOXIDE 24 mmol/L (23-29); CHLORIDE 102 mmol/L (98-107); CREATININE 1.18 mg/dL (0.55-1.30); GLUCOSE 161 mg/dL (74-106); POTASSIUM 4.1 mmol/L (3.5-5.1); SODIUM SERUM 134 mmol/L (136-145); TOTAL BILIRUBIN 0.3 mg/dL (0.0-1.0); TOTAL PROTEIN, SERUM 6.6 g/dL (6.4-8.3); UREA NITROGEN, BLOOD 18 mg/dL (8-21)
[2024-02-26 08:00] VITALS: BP_SYST 155; PULSE 83; RESP 20; TEMP 98.1; O2SAT 97
[2024-02-26 08:01] VITALS: O2SAT 97
[2024-02-26] MEDS: DULoxetine HCL 30 MG CAPSULE.DR (CYMBALTA) PO SCH (09:11)
[2024-02-26 12:16] VITALS: BP_SYST 142; PULSE 85; RESP 18; TEMP 98.2; O2SAT 98
[2024-02-26] MEDS: METOPROLOL TARTRATE 25 MG TABLET PO ONE (16:00)
[2024-02-26 16:29] VITALS: BP_SYST 149; PULSE 84; RESP 19; TEMP 98; O2SAT 97
[2024-02-26] MEDS: LOPERAMIDE HCL 2 MG CAPSULE PO ONE (17:24)
[2024-02-26] MEDS: FUROSEMIDE 20 MG/2 ML VIAL IVP ONE (17:37)
[2024-02-26 20:00] VITALS: BP_SYST 140; PULSE 78; RESP 18; TEMP 98; O2SAT 97
[2024-02-26] MEDS: METOPROLOL TARTRATE 25 MG TABLET PO SCH (20:49)
[2024-02-27] VITALS (7 sets, daily range): BP systolic 123–157; PULSE 73–84; RESP 16–18; TEMP 97.6–98.3; O2SAT 94–96
[2024-02-27 07:46] LABS: ALANINE AMINOTRANSFERASE 45 U/L (12-78); ALBUMIN 2.1 g/dL (3.4-4.8); ANION GAP 9 (5-15); ASPARTATE AMINOTRANSFERASE 27 U/L (10-37); CALCIUM 9.2 mg/dL (8.4-11.0); CARBON DIOXIDE 26 mmol/L (23-29); CHLORIDE 102 mmol/L (98-107); CREATININE 0.98 mg/dL (0.55-1.30); GLUCOSE 101 mg/dL (74-106); POTASSIUM 3.8 mmol/L (3.5-5.1); SODIUM SERUM 137 mmol/L (136-145); TOTAL BILIRUBIN 0.4 mg/dL (0.0-1.0); TOTAL PROTEIN, SERUM 6.6 g/dL (6.4-8.3); UREA NITROGEN, BLOOD 14 mg/dL (8-21)
[2024-02-27 08:39] LABS: BASOPHILS # (AUTO) 0.2 K/uL (0.0-0.2); BASOPHILS % (AUTO) 0.9 % (0.0-2.0); EOSINOPHILS # (AUTO) 0.3 K/uL (0.0-0.4); EOSINOPHILS % (AUTO) 1.4 % (0.0-4.0); HEMATOCRIT 28.7 % (36-48); HEMOGLOBIN 9.7 g/dL (12.0-16.0); LYMPHOCYTES # (AUTO) 1.9 K/uL (1.0-5.5); LYMPHOCYTES % (AUTO) 10.5 % (20.5-51.5); MEAN CORPUSCULAR HEMOGLOBIN 27 pg (27-31); MEAN CORPUSCULAR HGB CONC 34 % (32-36); MEAN CORPUSCULAR VOLUME 81 fL (79.0-98.0); MONOCYTES # (AUTO) 1.3 K/uL (0.0-1.0); MONOCYTES % (AUTO) 7.3 % (1.7-9.3); NEUTROPHILS # (AUTO) 14.2 K/uL (1.8-7.7); NEUTROPHILS % (AUTO) 79.9 % (40.0-70.0); PLATELET COUNT (AUTO) 606 K/uL (130-430); RED BLOOD CELL COUNT(AUTO) 3.56 MIL/uL (4.2-6.2); RED CELL DISTRIBUTION WIDTH 16.3 % (9.0-15.0); WHITE BLOOD COUNT (AUTO) 17.8 K/uL (4.8-10.8)
[2024-02-27] MEDS ORDERED: CYM30 PO (18:56)
[2024-02-27] MEDS ORDERED: LEVO-62 PO (18:58)
[2024-02-28] VITALS (8 sets, daily range): BP systolic 125–149; PULSE 66–83; RESP 15–19; TEMP 97.3–98.9; O2SAT 94–97
[2024-02-28 07:39] LABS: BASOPHILS # (AUTO) 0.2 K/uL (0.0-0.2); BASOPHILS % (AUTO) 1.4 % (0.0-2.0); EOSINOPHILS # (AUTO) 0.3 K/uL (0.0-0.4); EOSINOPHILS % (AUTO) 1.8 % (0.0-4.0); HEMATOCRIT 27.2 % (36-48); HEMOGLOBIN 9.4 g/dL (12.0-16.0); LYMPHOCYTES # (AUTO) 1.9 K/uL (1.0-5.5); LYMPHOCYTES % (AUTO) 11.6 % (20.5-51.5); MEAN CORPUSCULAR HEMOGLOBIN 28 pg (27-31); MEAN CORPUSCULAR HGB CONC 34 % (32-36); MEAN CORPUSCULAR VOLUME 80 fL (79.0-98.0); MONOCYTES # (AUTO) 1.4 K/uL (0.0-1.0); MONOCYTES % (AUTO) 8.3 % (1.7-9.3); NEUTROPHILS # (AUTO) 12.7 K/uL (1.8-7.7); NEUTROPHILS % (AUTO) 76.9 % (40.0-70.0); PLATELET COUNT (AUTO) 604 K/uL (130-430); RED CELL DISTRIBUTION WIDTH 16.4 % (9.0-15.0); WHITE BLOOD COUNT (AUTO) 16.5 K/uL (4.8-10.8)
[2024-02-28 07:52] LABS: ALANINE AMINOTRANSFERASE 36 U/L (12-78); ALBUMIN 2.1 g/dL (3.4-4.8); ANION GAP 9 (5-15); ASPARTATE AMINOTRANSFERASE 25 U/L (10-37); CALCIUM 9.3 mg/dL (8.4-11.0); CARBON DIOXIDE 26 mmol/L (23-29); CHLORIDE 102 mmol/L (98-107); CREATININE 0.95 mg/dL (0.55-1.30); GLUCOSE 117 mg/dL (74-106); SODIUM SERUM 137 mmol/L (136-145); TOTAL BILIRUBIN 0.4 mg/dL (0.0-1.0); TOTAL PROTEIN, SERUM 6.3 g/dL (6.4-8.3); UREA NITROGEN, BLOOD 11 mg/dL (8-21)
[2024-02-28] MEDS: LOPERAMIDE HCL 2 MG CAPSULE PO PRN (13:46)
[2024-02-28] MEDS: LACTOBACILLUS RHAMNOSUS GG 1 CAP CAPSULE PO ONE (13:46)
[2024-02-29] VITALS: BP_SYST 125; PULSE 68; RESP 17; TEMP 98.5; O2SAT 95
[2024-02-29 08:40] VITALS: O2SAT 96
[2024-02-29 08:52] VITALS: BP_SYST 151; PULSE 74; RESP 16; TEMP 97.3; O2SAT 96
[2024-02-29] MEDS: LACTOBACILLUS RHAMNOSUS GG 1 CAP CAPSULE PO SCH (08:59)
[2024-02-29 12:30] VITALS: BP_SYST 161; PULSE 78; RESP 17; TEMP 97.5; O2SAT 96
[2024-02-29 13:19] LABS: BASOPHILS # (AUTO) 0.2 K/uL (0.0-0.2); BASOPHILS % (AUTO) 1.2 % (0.0-2.0); EOSINOPHILS # (AUTO) 0.2 K/uL (0.0-0.4); EOSINOPHILS % (AUTO) 1.5 % (0.0-4.0); HEMATOCRIT 28.8 % (36-48); HEMOGLOBIN 9.4 g/dL (12.0-16.0); LYMPHOCYTES # (AUTO) 1.7 K/uL (1.0-5.5); LYMPHOCYTES % (AUTO) 10.5 % (20.5-51.5); MEAN CORPUSCULAR HEMOGLOBIN 27 pg (27-31); MEAN CORPUSCULAR HGB CONC 33 % (32-36); MEAN CORPUSCULAR VOLUME 82 fL (79.0-98.0); MONOCYTES # (AUTO) 1.2 K/uL (0.0-1.0); MONOCYTES % (AUTO) 7.1 % (1.7-9.3); NEUTROPHILS # (AUTO) 12.9 K/uL (1.8-7.7); NEUTROPHILS % (AUTO) 79.7 % (40.0-70.0); PLATELET COUNT (AUTO) 568 K/uL (130-430); RED BLOOD CELL COUNT(AUTO) 3.52 MIL/uL (4.2-6.2); RED CELL DISTRIBUTION WIDTH 16.9 % (9.0-15.0); WHITE BLOOD COUNT (AUTO) 16.1 K/uL (4.8-10.8)
[2024-02-29 16:47] VITALS: BP_SYST 149; PULSE 83; RESP 17; TEMP 98.5; O2SAT 95
== END 2024-02-29 18:00 | disposition home health service (06) | DRG 872 ==
LOC: SED 20:23 → SMU 02-22 02:18
PROVIDERS: ADMIT Specialist; ATTEND Specialist
DX: A41.9 Sepsis, unspecified organism (principal); E87.1 Hypo-osmolality and hyponatremia; N12 Tubulo-interstitial nephritis, not specified as acute or chronic; E44.0 Moderate protein-calorie malnutrition; D64.9 Anemia, unspecified; Z20.822 Contact with and (suspected) exposure to COVID-19; B96.20 Unspecified Escherichia coli [E. coli] as the cause of diseases classified elsewhere; K21.9 Gastro-esophageal reflux disease without esophagitis; E11.65 Type 2 diabetes mellitus with hyperglycemia; D75.839 Thrombocytosis, unspecified; E87.8 Other disorders of electrolyte and fluid balance, not elsewhere classified; G89.29 Other chronic pain; Z90.710 Acquired absence of both cervix and uterus; Z90.49 Acquired absence of other specified parts of digestive tract; Z79.899 Other long term (current) drug therapy; Z88.2 Allergy status to sulfonamides; Z79.84 Long term (current) use of oral hypoglycemic drugs; Z68.34 Body mass index [BMI] 34.0-34.9, adult
CPT/HCPCS: 36415; 71045; 76770; 80048; 80053; 80076; 81000; 81001; 81015; 82435; 82570; 82948; 83037; 83605; 84302; 85007; 85025; 85027; 87040; 87086; 87186; 93005; 94070; 94760; 96365; 96375; 97110-GP; 97116-GP; 97530-GP; 99285; J0696; J1815; J1885; J1940; J2270; J2405; J2470; J2543; J3490; J7060